=== PATIENT | female | born 1990 | race Caucasian/White ===

== ENCOUNTER → 2022-03-09 | Outpatient (CLI) | payer BC ==
[2022-03-09 18:15] LABS: HEMATOCRIT 36 % (35-52); MEAN CORPUSCULAR HEMOGLOBIN 32 pg (25-34); MEAN CORPUSCULAR HGB CONC 36 g/dL (32-36); MEAN CORPUSCULAR VOLUME 87 fL (80-99); MEAN PLATELET VOLUME 9.4 fL (9.0-12.2); PLATELET COUNT 314 10^3/uL (130-400); WHITE BLOOD COUNT 6.2 10^3/uL (4.3-11.0)
== END ==
LOC: MERGE 17:48 → LAB 17:48
PROVIDERS: ATTEND Family Medicine
DX: Z34.91 Encounter for supervision of normal pregnancy, unspecified, first trimester (principal); Z3A.11 11 weeks gestation of pregnancy
CPT/HCPCS: 36415; 85027; 86762; 86780; 86850; 86900; 86901; 87088; 87340; 87389

== ENCOUNTER → 2022-03-11 | Outpatient (CLI) | payer BC | LOC: LABNPT 08:45 | PROVIDERS: ATTEND Family Medicine | DX: Z01.89 Encounter for other specified special examinations (principal) | CPT/HCPCS: 87491; 87591 ==

== ENCOUNTER → 2022-04-28 | Outpatient (CLI) | payer BC | LOC: LAB FS 13:21 | PROVIDERS: ATTEND Family Medicine | DX: Z34.92 Encounter for supervision of normal pregnancy, unspecified, second trimester (principal); Z3A.15 15 weeks gestation of pregnancy | CPT/HCPCS: 36415; 82677; 84702; 86336 ==

== ENCOUNTER → 2022-08-22 | Outpatient (CLI) | payer OTHER | LOC: LABNPT 13:13 | PROVIDERS: ATTEND Family Medicine | DX: Z34.83 Encounter for supervision of other normal pregnancy, third trimester (principal); Z3A.00 Weeks of gestation of pregnancy not specified | CPT/HCPCS: 87081 ==

== ENCOUNTER 2022-09-12 05:30 | Outpatient (CLI) | payer BC ==
[~2022-09-12] VITALS: Ht 154.9 cm; Wt 69.7 kg
[2022-09-12] MEDS ORDERED: PNV-9 PO (13:36)
== END 2022-09-12 14:12 | disposition home or self-care (01) ==
LOC: PREOP 05:30
PROVIDERS: ATTEND Obstetrics & Gynecology
DX: Z01.818 Encounter for other preprocedural examination (principal)

== ENCOUNTER 2022-09-19 05:35 | Inpatient (IN) | payer BC ==
[2022-09-19] VITALS (10 sets, daily range): BP systolic 98–130; BP diastolic 60–84
[~2022-09-19] VITALS: Ht 154 cm; Wt 70.5 kg
[~2022-09-19 05:35] MED LIST: PNV-9 PO
[2022-09-19] MEDS ORDERED: METOCLOPRAMIDE INJ 10 MG/2 ML (REGLAN) IV ONE (05:45)
[2022-09-19] MEDS ORDERED: CITRIC ACID/SOB CIT (BICITRA) 30 ML UDC PO ONE (05:45)
[2022-09-19] MEDS ORDERED: LACTATED RINGERS 1,000 ML IV SCH (05:45)
[2022-09-19] MEDS ORDERED: ceFAZolin INJECTION 2,000 MG in NS (IVPB) 50 ML IV ONE (05:45)
[2022-09-19] MEDS ORDERED: FAMOTIDINE 20MG/2ML IV (PEPCID) IV ONE (05:45)
[2022-09-19] MEDS: LACTATED RINGERS 1,000 ML IV SCH ×2 (06:11→13:07)
--- NOTE | 2022-09-19 06:18 | History & Physical-OB ---
NISREEN SAVAGE 09/19/22 0618: OB - Chief Complaint & HPI Date/Time Date of Admission: Date of Admission: Sep 19, 2022 at 05:35 Chief Complaint/History OB-Reason for Admission/Chief: Section Hx : 2 Hx Para: 1 Expected Date of Delivery: Sep 24, 2022 Gestational Age in Weeks: 39 Gestational Age in Days: 2 Indication for : desires repeat Admission Nurse Assessment Rev: Yes Allergies and Home Medications Allergies Coded Allergies: No Known Drug Allergies (Unverified , 09/12/22) Patient Home Medication List Home Medication List Reviewed: Yes Pnv 119/Iron Fum/Folic Acid ( 19 Tablet) 29 Mg Iron-1 Mg Tablet, 1 EACH PO DAILY, (Reported) Entered as Reported by: RALPH MURILLO on 09/12/22 9776 OB - History Hx of Present Care: Yes Ultrasounds: Normal mid trimester US Obstetrical Complications: None Medical Complications: None Information Induced Hypertension: No Maternal Gestational Diabetes: No Hemorrhage: No Obstetrical History Hx : 2 Hx Para: 1 Hx # Term Pregnancies: 1 Hx # Pregnancies: 0 Number of Living Children: 1 Hx Termination: No Hx Multiple Gestation: No Hx Ectopic : No Hx Stillbirth: No Hx Complication: No Hx Induced Hypertens: No Hx Maternal Gestational Diabet: No Hx Hemorrhage: No Delivery History Hx Dystocia: No Hx Forceps Assisted Delivery: No Hx Vacuum Extraction Assisted: No Hx Placenta Abnormality: No Hx Distress: No Hx Large For Gestational Age I: No Hx Small for Gestational Age I: No Hx Section: Yes Hx Vaginal Delivery Post C-Sec: No Hx Blood Disorders: No Adverse Rxn to Tranfusion: No Patient Past Medical History Non-significant Social History/Family History Alcohol Use: Denies Use Recreational Drug Use: No Smoking Cessation: Never smoker 2nd Hand Smoke Exposure: No Immunizations Influenza Vaccine Up-to-Date: Yes; Up-to-Date First/Initial COVID19 Vaccine: 2021 Second COVID19 Vaccination: 2021 Tetanus Booster (TDap): Less than 5yrs Rubella: immune RPR/VDRL: Negative GBS Status: Negative HBsAG: Negative OB - Admission Exam Physical Exam Heart: Rhythm Normal Lungs: Clear Abdomen: Gravid Extremities: Normal Reflexes: Normal Membranes: Intact Contractions on Admission: None OB - Assessment/Plan/Diagnosis Assessment Assessment: section Admission Dx Repeat section Admission Status: Inpatient Order (span 2 midnights) Reason for Inpatient Admission: Repeat sectiion Plan Plan: Section VELIA ART DO 09/19/22 0707: OB - Chief Complaint & HPI Date/Time Time Seen by a Provider: 07:05 Allergies and Home Medications Allergies Coded Allergies: No Known Drug Allergies (Unverified , 09/12/22) Patient Home Medication List Home Medication List Reviewed: Yes Pnv 119/Iron Fum/Folic Acid ( 19 Tablet) 29 Mg Iron-1 Mg Tablet, 1 EACH PO DAILY, (Reported) Entered as Reported by: RALPH MURILLO on 09/12/22 2846 OB - Assessment/Plan/Diagnosis Plan Other Plan Verification and Attestation of Medical Student E/M Service A medical student performed and documented this service in my presence. I reviewed and verified all information documented by the medical student and made modifications to such information, when appropriate. I personally performed the physical exam and medical decision making. Velia Art, Sep 19, 2022,07:07 NISREEN SAVAGE Sep 19, 2022 06:18 VELIA ART DO Sep 19, 2022 07:07
[2022-09-19 06:20] LABS: BASOPHILS % (AUTO) 1 % (0-10); EOSINOPHILS # (AUTO) 0.1 10^3/uL (0.0-0.3); EOSINOPHILS % (AUTO) 1 % (0-10); HEMATOCRIT 36 % (35-52); HEMOGLOBIN 12.7 g/dL (11.5-16.0); LYMPHOCYTES # (AUTO) 1.5 10^3/uL (1.0-4.0); LYMPHOCYTES % (AUTO) 24 % (12-44); MEAN CORPUSCULAR HEMOGLOBIN 29 pg (25-34); MEAN CORPUSCULAR HGB CONC 35 g/dL (32-36); MEAN CORPUSCULAR VOLUME 84 fL (80-99); MEAN PLATELET VOLUME 10.8 fL (9.0-12.2); MONOCYTES # (AUTO) 0.6 10^3/uL (0.0-1.0); MONOCYTES % (AUTO) 9 % (0-12); NEUTROPHILS # (AUTO) 3.9 10^3/uL (1.8-7.8); NEUTROPHILS % (AUTO) 64 % (42-75); PLATELET COUNT 254 10^3/uL (130-400); WHITE BLOOD COUNT 6.1 10^3/uL (4.3-11.0)
[2022-09-19] MEDS ORDERED: fentaNYL INJ 100 MCG/2 ML AMP ONE (06:56)
[2022-09-19] MEDS ORDERED: ONDANSETRON 4 MG/2 ML (SDV) Z0FRAN ONE (06:56)
[2022-09-19] MEDS ORDERED: OXYTOCIN PRE-MIX DRIP 1,000 ML IV ONE (06:56)
--- NOTE | 2022-09-19 07:29 | Discharge Inst-Women's Service ---
Discharge Inst-Women's Serv Depart Medication/Instructions New, Converted or Re-Newed RX: Transmitted to Pharmacy Final Diagnosis POD 2 RLTCS Problems Reviewed?: Yes Consults/Follow Up Additional Follow Up: Yes Orders/Referrals DR. Art in 7-10 days and in 6 weeks Activity Activity: Activity as Tolerated Driving Instructions: No Driving for 1 Week NO SMOKING: NO SMOKING Nothing Inside Vagina: No Douching, No [place], No Tampons Diet Discharge Diet: No Restrictions Symptoms to Report to : Bleeding Excessive, Pain Increased, Fever Over 101 Degrees F, Vaginal Bleeding Increase, Questions/Concerns For Any Problems or Questions: Contact Your Physician VELIA ART DO Sep 19, 2022 07:29
[2022-09-19] MEDS ORDERED: MEASLES,MUMPS,RUBELLA 1 EA INJ SC SCH (07:30)
[2022-09-19] MEDS ORDERED: NALOXONE 0.4 MG/ML 1 ML (NARCAN) VIAL IV PRN (07:30)
[2022-09-19] MEDS ORDERED: HYDROcodone/APAP 5 MG/325 MG (LORTAB) TAB PO PRN (07:30)
[2022-09-19] MEDS ORDERED: TETANUS,DIPTH,PERTUSS P/F (BOOSTRIX) 0.5 ML VIAL IM SCH (07:30)
[2022-09-19] MEDS ORDERED: ONDANSETRON 4 MG/2 ML (SDV) Z0FRAN IVP PRN (07:30)
[2022-09-19] MEDS ORDERED: OXYTOCIN PRE-MIX DRIP 500 ML IV SCH (07:30)
[2022-09-19] MEDS ORDERED: IBUP-844 PO (07:30)
[2022-09-19] MEDS ORDERED: DOCU100C37 PO (07:30)
[2022-09-19] MEDS ORDERED: ACHD5005 PO (07:30)
[2022-09-19] MEDS ORDERED: KETOROLAC 30 MG/ML VIAL ONE (07:51)
[2022-09-19] MEDS ORDERED: PHENYLEPHRINE 100 MCG/ML 10 ML (ANESTHESIA) SYR ONE (07:56)
[2022-09-19] MEDS ORDERED: BUPIVACAINE 0.5% 30 ML (SENSORCAINE) VIAL ONE (07:56)
[2022-09-19] MEDS: KETOROLAC 30 MG/ML VIAL IV SCH ×3 (08:14→20:38)
[2022-09-19] MEDS: DOCUSATE SODIUM 100 MG (COLACE) CAP PO SCH ×2 (09:00→20:38)
[2022-09-19] MEDS: CATHETER FLUSH 10 ML SYR IV SCH ×2 (14:15→20:39)
--- NOTE | 2022-09-19 14:22 | OPERATIVE REPORT ---
PREOPERATIVE DIAGNOSES: 1. A 32-year-old G2, P1 at 39 weeks and 2 days gestation. 2. Previous section. POSTOPERATIVE DIAGNOSES: 1. A 32-year-old G2, P1 at 39 weeks and 2 days gestation. 2. Previous section. PROCEDURE: Repeat low transverse section. SURGEON: Wil Brooks DO ANESTHESIA: Spinal. ESTIMATED BLOOD LOSS: 500 mL URINE OUTPUT: 300 mL clear at the end of the procedure. FLUIDS: 1000 mL lactated Ringer's solution. FINDINGS: A live female infant, weighing 8 pounds 10 ounces, Apgars of 9 and 9. Grossly normal appearing uterus, bilateral fallopian tubes and ovaries. SPECIMEN SENT: None. INDICATIONS FOR PROCEDURE: A 32-year-old female is the patient who sought care with Dr Gutierrez. She transferred at the end of her due to need for repeat . Discussed with the patient repeat in detail including the risks, benefits, alternatives, recovery timeframe, risk from anesthesia and even . After everything was discussed with the patient in detail, consent was obtained in the preoperative area and the patient was taken to the operating room. OPERATIVE REPORT IN DETAIL: Once in the operating room, spinal analgesia was administered and found to be adequate. She was placed in supine position with leftward tilt, prepped and draped in normal sterile fashion. A timeout was performed. Anesthesia was tested. I then make a Pfannenstiel skin incision through the previously existing scar using knife and carried down to the underlying fascia using Bovie cautery. Fascial incision extended laterally using Bovie cautery. The superior aspect of fascial incision was then grasped with Rissa clamps, tented up and dissected off the underlying rectus muscles. The inferior aspect of fascial incision was then grasped with Rissa clamps, tented up and dissected off the underlying rectus muscles. Rectus muscle dissected down the midline using blunt dissection, which exposed the peritoneum, which I entered bluntly, extended using blunt traction. Tray ring retractor was placed in the peritoneal incision, which offers excellent lateral sidewall retraction. I identified the lower uterine segment which was found to be thinned out. I make a low transverse incision to the vesicouterine peritoneum and bluntly dissected off the lower uterine segment, creating a bladder flap. I then proceeded with my myotomy until membranes were visualized, at which point I extended the uterine incision laterally and superiorly using bandage scissors. Amniotomy was then performed using Allis clamp. Clear fluid was noted. The was found in vertex presentation. With gentle fundal pressure, the 's head was elevated up the incision where it was delivered through the incision. The nares and oropharynx were bulb suctioned. A nuchal cord was reduced x1. Anterior and posterior shoulders were delivered. The infant was brought to the operative field where cord was doubly clamped and cut and was handed off to waiting nurses in attendance. Cord blood was collected. Three-vessel cord with intact placenta was delivered spontaneously thereafter. IV Pitocin was initiated to facilitate uterine contraction. Uterine fundus became with bimanual massage. The uterus was then exteriorized and cleared of all endometrial clots and debris. I then proceeded with closing the uterine incision using 0 Vicryl suture in a running locked fashion. Second layer of imbricating 0 Monocryl was placed. Excellent hemostasis was noted after doing this. I then placed the uterus back in the pelvis and copiously irrigated the pelvis using normal saline. Once again, there was no active bleeding noted from any of my dissection planes. I placed Interceed antiadhesive over my low transverse incision. I removed the Tray ring retractor and then proceeded to close the peritoneum using 3-0 Vicryl suture in a running fashion. The rectus muscle was reapproximated using 3-0 Vicryl suture in interrupted fashion. The fascia was reapproximated using 0 Vicryl suture in a running fashion. The skin was reapproximated using 4-0 Monocryl running subcuticular. Dermabond was applied to incision and sterile dressing with adhesive white tape. The patient tolerated the procedure well and was taken to recovery area in stable condition. Lap and sponge counts were correct at the end of the procedure. Instrument counts correct as well. Two grams of Ancef were given preoperatively for infection prophylaxis. Job ID: [id number] DocumentID: [id number] Dictated Date: 09/19/2022 08:43:23 Dental Laboratory Technician Date: 09/19/2022 14:20:00 Dictated By: DO KATY ZAIDI
[2022-09-20 02:39] VITALS: BP 112/66
[2022-09-20] MEDS: KETOROLAC 30 MG/ML VIAL IV SCH (02:41)
[2022-09-20 05:46] LABS: BASOPHILS % (AUTO) 0 % (0-10); EOSINOPHILS # (AUTO) 0.1 10^3/uL (0.0-0.3); EOSINOPHILS % (AUTO) 1 % (0-10); HEMATOCRIT 30 % (35-52); HEMOGLOBIN 10.3 g/dL (11.5-16.0); LYMPHOCYTES # (AUTO) 1.5 10^3/uL (1.0-4.0); LYMPHOCYTES % (AUTO) 16 % (12-44); MEAN CORPUSCULAR HEMOGLOBIN 30 pg (25-34); MEAN CORPUSCULAR HGB CONC 35 g/dL (32-36); MEAN CORPUSCULAR VOLUME 85 fL (80-99); MONOCYTES # (AUTO) 0.7 10^3/uL (0.0-1.0); MONOCYTES % (AUTO) 8 % (0-12); NEUTROPHILS # (AUTO) 6.8 10^3/uL (1.8-7.8); NEUTROPHILS % (AUTO) 75 % (42-75); PLATELET COUNT 216 10^3/uL (130-400); WHITE BLOOD COUNT 9.2 10^3/uL (4.3-11.0)
[2022-09-20 06:19] VITALS: BP 143/87
--- NOTE | 2022-09-20 06:20 | Postpartum Progress Note ---
Note Note Day # 1 Subjective: Patient endorses moderate chest pain that is radiating to her right shoulder. She says this started yesterday late evening and is a constant pain. It is associated with shortness of breath. She had a history of GERD during but says this feels different. It is not exacerbated by anything, just constant. Patient is ambulating and voiding. Tolerating a regular diet without nausea or vomiting. Normal lochia. Pain is well controlled with oral pain medications. Objective: Physical Exam: General - Alert and oriented, no apparent distress Cardio - RRR, no murmurs or rubs Pulm - CTAB, no crackles, wheezes Abdomen - Soft, appropriately tender to palpation, non-distended, fundus firm at umbilicus Extremities - no edema, negative Swapna's bilaterally Assessment: Post- day # 1, status post section Recovering well, hemodynamically stable Plan: Routine care. Encourage breast feeding. Encourage ambulation. Ferrous sulfate supplementation. Plan for discharge 09/18/2022 Vitals - Labs Vital Signs - I&O Vital Signs Date Time Temp Pulse Resp B/P (MAP) Pulse Ox O2 Delivery O2 Flow Rate FiO2 09/20/22 02:39 36.4 81 18 112/66 (81) 97 Room Air 09/19/22 22:05 35.9 66 18 116/66 (83) 98 Room Air 09/19/22 18:00 36.4 62 18 130/71 (90) 96 Room Air 09/19/22 14:16 36.2 09/19/22 14:15 36.9 63 18 107/60 (76) 97 Room Air 09/19/22 10:30 36.2 60 18 128/75 (92) 97 Room Air 09/19/22 10:00 36.0 55 18 122/72 (89) 99 Room Air 09/19/22 09:15 Room Air 09/19/22 09:15 35.6 19 115/84 (94) 98 Room Air 09/19/22 09:00 Room Air 09/19/22 09:00 35.8 23 113/75 (88) 98 Room Air 09/19/22 08:45 Room Air 09/19/22 08:45 35.5 17 98/68 (78) 99 Room Air 09/19/22 08:30 35.8 20 99/67 (78) 98 Room Air 09/19/22 08:30 Room Air 09/19/22 08:21 Room Air I & O 09/20/22 07:00 Intake Total 1150 ml Output Total 1370 ml Balance -220 ml Labs Laboratory Tests 09/20/22 05:10: White Blood Count 9.2, Red Blood Count 3.48L, Hemoglobin 10.3L, Hematocrit 30L, Mean Corpuscular Volume 85, Mean Corpuscular Hemoglobin 30, Mean Corpuscular Hemoglobin Concent 35, Red Cell Distribution Width 14.1, Platelet Count 216, Mean Platelet Volume 11.0, Immature Granulocyte % (Auto) 1, Neutrophils (%) (Auto) 75, Lymphocytes (%) (Auto) 16, Monocytes (%) (Auto) 8, Eosinophils (%) (Auto) 1, Basophils (%) (Auto) 0, Neutrophils # (Auto) 6.8, Lymphocytes # (Auto) 1.5, Monocytes # (Auto) 0.7, Eosinophils # (Auto) 0.1, Basophils # (Auto) 0.0, Immature Granulocyte # (Auto) 0.1 NISREEN SAVAGE Sep 20, 2022 06:20
[2022-09-20] MEDS: CATHETER FLUSH 10 ML SYR IV SCH ×3 (06:44→21:01)
[2022-09-20 07:30] VITALS: BP 119/73
[2022-09-20] MEDS: DOCUSATE SODIUM 100 MG (COLACE) CAP PO SCH ×2 (09:14→21:01)
[2022-09-20] MEDS: IBUPROFEN 600 MG (MOTRIN) TAB PO SCH ×3 (09:15→21:01)
--- NOTE | 2022-09-20 11:18 | Anesthesia-Regional Post-Op ---
Regional Patient Condition Mental Status: Alert, Oriented x3 Circulation: Same as Pre-Op Headache: Absent Sensation: Full Recovery Motor Block: Absent Post Op Complications Complications None Follow Up Care/Instructions Patient Instructions None needed. Anesthesia/Patient Condition Patient is doing well, no complaints, stable vital signs, no apparent adverse anesthesia problems. No complications reported per nursing. NAEEM DAVIDSON CRNA Sep 20, 2022 11:17
[2022-09-20 12:00] VITALS: BP 114/78
[2022-09-20 17:06] VITALS: BP 116/68
[2022-09-20 23:53] VITALS: BP 116/71
[2022-09-21] MEDS: IBUPROFEN 600 MG (MOTRIN) TAB PO SCH ×2 (03:09→10:06)
[2022-09-21] MEDS: CATHETER FLUSH 10 ML SYR IV SCH (03:11)
[2022-09-21 06:01] VITALS: BP 123/70
--- NOTE | 2022-09-21 07:15 | Postpartum Progress Note ---
Note Note Day # 2 Subjective: Patient is without complaints. Ambulating, voiding. Tolerating a regular diet without nausea or vomiting. Normal lochia. Pain is well controlled with oral pain medications. Chest pain and shortness of breath have resolved. Objective: Physical Exam: General - Alert and oriented, no apparent distress Cardio - RRR, no murmurs Pulm - CTAB Abdomen - Soft, appropriately tender to palpation, non-distended, fundus firm at umbilicus Extremities - no edema, negative Swapna's bilaterally Assessment: Post- day # 2, status post section. Recovering well, hemodynamically stable Plan: Routine care. Encourage breast feeding. Encourage ambulation. Ferrous sulfate supplementation. Plan for discharge 09/21 Vitals - Labs Vital Signs - I&O Vital Signs Date Time Temp Pulse Resp B/P (MAP) Pulse Ox O2 Delivery O2 Flow Rate FiO2 09/21/22 06:01 36.4 63 18 123/70 (87) 97 Room Air 09/20/22 23:53 36.4 69 18 116/71 (86) 96 09/20/22 20:55 Room Air 09/20/22 17:06 36.4 96 18 116/68 (84) 96 09/20/22 12:00 36.6 73 16 114/78 (90) 97 Room Air 09/20/22 09:00 97 Room Air 09/20/22 07:30 36.8 67 18 119/73 (88) 97 I & O 09/21/22 06:59 Intake Total 2400 ml Balance 2400 ml Labs Microbiology 09/19/22 MRSA Screen - Final, Complete MRSA not isolated NISREEN SAVAGE Sep 21, 2022 07:15
[2022-09-21 07:51] VITALS: BP 110/71
[2022-09-21] MEDS: DOCUSATE SODIUM 100 MG (COLACE) CAP PO SCH (10:06)
[2022-09-21 11:58] VITALS: BP 119/74
[2022-09-21 12:25] VITALS: BP 115/69
== END 2022-09-21 12:55 | disposition home or self-care (01) | DRG 788 ==
LOC: LDRP 05:35
PROVIDERS: ADMIT Obstetrics & Gynecology; ATTEND Obstetrics & Gynecology
PROC: 10D00Z1 Extraction of Products of Conception, Low, Open Approach (ICD-10-PCS; principal; 2022-09-19 07:23)
DX: O34.211 Maternal care for low transverse scar from previous cesarean delivery (principal); O69.81X0 Labor and delivery complicated by cord around neck, without compression, not applicable or unspecified; Z37.0 Single live birth; O99.613 Diseases of the digestive system complicating pregnancy, third trimester; K21.9 Gastro-esophageal reflux disease without esophagitis; Z3A.39 39 weeks gestation of pregnancy
CPT/HCPCS: 36415; 85025; 86850; 86900; 86901; 87081